=== PATIENT | female | born 1985 | race Hispanic/Latino ===

== ENCOUNTER → 2024-04-02 | Day surgery (SDC) | payer BC ==
[~2024-04-02] MED LIST: B12; CALCIUM; FENTANYL CITRATE/PF 100MCG/2 ML INJ ONE; LIDOCAINE HCL 2% LOCAL INJ 5 ML SDV VIAL INJ ONE; MAGNESIUM100 MG; MIDAZOLAM HCL 2 MG/2 ML VIAL ONE; MULTI-VITAMIN1 EACH PO; ONDANSETRON HCL INJ 2MG/ML 2ML 2 MG/ML VIAL ONE; PROPOFOL IV EMULSION 10 MG/ML 20 ML VIAL ONE; TYLENOL
[2024-04-02] MEDS: LACTATED RINGER'S 1,000 ML ONE (15:25)
[2024-04-02 18:35] VITALS: BP 106/65; PULSE 67; RESP 16; O2SAT 100
== END | disposition home or self-care (01) ==
LOC: OR 14:32
PROVIDERS: ATTEND Internal Medicine Gastroenterology
DX: K62.5 Hemorrhage of anus and rectum (principal); D12.2 Benign neoplasm of ascending colon; D12.4 Benign neoplasm of descending colon; K31.89 Other diseases of stomach and duodenum; R14.0 Abdominal distension (gaseous); R14.2 Eructation; K59.00 Constipation, unspecified; K64.1 Second degree hemorrhoids; Z98.84 Bariatric surgery status; Z68.31 Body mass index [BMI] 31.0-31.9, adult
CPT/HCPCS: 43239; 45384; 45385; 81025; J2003; J2250; J2405; J2704; J3010; J7121